=== PATIENT | male | born 1970 | race Two or more races ===

== ENCOUNTER 2017-12-23 18:13 | Inpatient (IN) | payer OTHER ==
[~2017-12-23] VITALS: Ht 175.3 cm; Wt 77.5 kg
[2017-12-23 19:17] LABS: Hematocrit 29.4 % (41.0-53.0); Mean Corpuscular Hemoglobin 29.2 pg (28.0-32.0); Mean Corpuscular Hgb Conc. 33.8 g/dL (32.0-36.0); Mean Corpuscular Volume 86.2 fL (80.0-100.0); Platelet Count (auto) 120 10^3/uL (140-450); Red Blood Cells 3.42 10^6/uL (4.5-5.90); Red Cell Distribution Width 14.1 % (11.8-14.3)
[2017-12-23 19:28] LABS: Band Neutrophils % (manual) 0; Basophils % (manual) 0 (0.0-2.0); Eosinophils % (manual) 0 (0-7); Promyelocytes % 0; Reactive Lymphocytes 0
[2017-12-23 19:36] LABS: Albumin 3.8 g/dL (3.4-5.0); Bilirubin, Total 0.5 mg/dL (0.2-1.0); Calcium 8.5 mg/dL (8.5-10.1); Magnesium 2.8 mg/dL (1.6-2.6); Potassium 3.8 mmol/L (3.5-5.1); Total Protein 7.8 g/dL (6.4-8.2)
[2017-12-23 20:22] LABS: Lymphocytes % (manual) 75 (10.0-50.0); Metamyelocytes % 1; Monocytes % (manual) 11 (0-12); Myelocytes % 2
[2017-12-23 20:27] LABS: Blast Cells 10
[2017-12-23] MEDS ORDERED: PIPERACILLIN-TAZOB 3.375GM 50 ML IV ONE (22:00)
[2017-12-23] MEDS ORDERED: SODIUM CHLORIDE 0.9% 1,000 ML IV ONE (22:00)
[2017-12-24] MEDS ORDERED: ACETAMINOPHEN 325 MG TAB PO ONE (01:00)
[2017-12-24 01:14] LABS: Urine Bacteria FEW /hpf (None Seen); Urine Blood Negative /uL (Negative); Urine Mucus FEW (None Seen); Urine Specific Gravity 1.008 (1.001-1.035); Urine WBC <1 /hpf (0 - 3)
[2017-12-24] MEDS ORDERED: ONDANSETRON HCL 4 MG/2 ML VIAL IV PRN (01:15)
[2017-12-24] MEDS: SODIUM CHLORIDE 0.9% 1,000 ML IV SCH ×3 (01:42→21:13)
[2017-12-24 05:00] VITALS: BP 110/72
[2017-12-24] MEDS: PIPERACILLIN-TAZOB 3.375GM 50 ML IV SCH ×3 (06:39→17:33)
[2017-12-24] MEDS ORDERED: ATOR40TA52 PO (06:43)
[2017-12-24 07:32] LABS: Hematocrit 24.8 % (41.0-53.0); Hemoglobin 8.3 g/dL (13.5-17.5); Mean Corpuscular Hemoglobin 28.8 pg (28.0-32.0); Mean Corpuscular Hgb Conc. 33.6 g/dL (32.0-36.0); Mean Corpuscular Volume 85.8 fL (80.0-100.0); Platelet Count (auto) 93 10^3/uL (140-450); Red Blood Cells 2.89 10^6/uL (4.5-5.90); White Blood Cell 22.4 10^3/uL (4.4-10.8)
[2017-12-24 07:37] LABS: Eosinophils % (manual) 0 (0-7)
[2017-12-24 07:38] LABS: Basophils % (manual) 0 (0.0-2.0); Blast Cells 0; Metamyelocytes % 0; Myelocytes % 0; Promyelocytes % 0; Reactive Lymphocytes 0
[2017-12-24 07:46] LABS: BUN/Creatinine Ratio 12.9; Calcium 8.3 mg/dL (8.5-10.1)
[2017-12-24 08:00] VITALS: BP 108/73
[2017-12-24 09:07] VITALS: BP 108/73
[2017-12-24 10:51] LABS: Band Neutrophils % (manual) 20; Lymphocytes % (manual) 70 (10.0-50.0); Monocytes % (manual) 8 (0-12)
[2017-12-24 13:00] VITALS: BP 109/71
[2017-12-24] MEDS: HYDROcodone-ACET 5/325MG TAB PO PRN (16:34)
[2017-12-24 17:00] VITALS: BP 122/77
[2017-12-24] MEDS: ATORVASTATIN 20 MG TAB PO SCH (21:14)
[2017-12-24 21:58] VITALS: BP 109/70
[2017-12-24] MEDS ORDERED: ACETAMINOPHEN 325 MG TAB PO PRN (22:15)
[2017-12-25] MEDS: PIPERACILLIN-TAZOB 3.375GM 50 ML IV SCH ×4 (00:55→17:51)
[2017-12-25 05:30] VITALS: BP 97/65
[2017-12-25] MEDS: SODIUM CHLORIDE 0.9% 1,000 ML IV SCH (05:48)
[2017-12-25 08:00] VITALS: BP 133/83
[2017-12-25 09:00] VITALS: BP 104/66
[2017-12-25 13:00] VITALS: BP 108/66
[2017-12-25 17:07] VITALS: BP 121/78
[2017-12-25] MEDS: HYDROcodone-ACET 5/325MG TAB PO PRN (17:51)
[2017-12-25] MEDS ORDERED: guaiFENesin-COD 10 ML UD PO PRN (18:15)
[2017-12-25] MEDS: ATORVASTATIN 20 MG TAB PO SCH (21:30)
[2017-12-25 22:47] VITALS: BP 100/63
[2017-12-26 05:20] VITALS: BP 98/64
[2017-12-26 08:00] VITALS: BP 100/68
[2017-12-26 08:11] VITALS: BP 100/68
[2017-12-26 12:10] VITALS: BP 107/65
[2017-12-26 14:38] VITALS: BP 107/65
[2017-12-27] MEDS ORDERED: OMEP20CA74 PO (22:18)
[2017-12-27] MEDS ORDERED: OMEG100078 PO (22:18)
== END 2017-12-26 15:21 | disposition home or self-care (01) | DRG 144 ==
LOC: ER 18:13 → TELE 18:14 → TELE-WESTW 12-24 04:05
PROVIDERS: ADMIT Nurse Practitioner Family; ATTEND Internal Medicine Pulmonary Disease
DX: J20.8 Acute bronchitis due to other specified organisms (principal); D69.6 Thrombocytopenia, unspecified; J06.9 Acute upper respiratory infection, unspecified; E78.5 Hyperlipidemia, unspecified; K21.9 Gastro-esophageal reflux disease without esophagitis; D72.820 Lymphocytosis (symptomatic); E78.00 Pure hypercholesterolemia, unspecified; Z82.49 Family history of ischemic heart disease and other diseases of the circulatory system; D72.829 Elevated white blood cell count, unspecified
CPT/HCPCS: 36415; 71046; 80048; 80053; 81001; 83735; 85007; 85027; 85060; 87070; 87086; 87804; 96365; J2543

== ENCOUNTER 2017-12-27 11:09 | Inpatient (IN) | payer OTHER ==
[~2017-12-27] VITALS: Ht 177.8 cm; Wt 75.9 kg
[~2017-12-27 11:09] MED LIST: ATOR40TA52 PO
[2017-12-27] MEDS ORDERED: MORPHINE SULFATE 4 MG/ML SYR/VIAL IV PRN ×2 (11:45)
[2017-12-27] MEDS ORDERED: NITROGLYCERIN 0.4 MG SL TAB SL PRN (11:45)
[2017-12-27] MEDS ORDERED: guaiFENesin-COD 10 ML UD PO PRN (11:45)
[2017-12-27] MEDS ORDERED: ONDANSETRON HCL 4 MG/2 ML VIAL IV PRN (11:45)
[2017-12-27 11:53] LABS: Mean Corpuscular Volume 85.8 fL (80.0-100.0)
[2017-12-27 11:57] LABS: Hematocrit 29.1 % (41.0-53.0); Hemoglobin 9.6 g/dL (13.5-17.5); Mean Corpuscular Hemoglobin 28.3 pg (28.0-32.0); Platelet Count (auto) 110 10^3/uL (140-450); Red Blood Cells 3.39 10^6/uL (4.5-5.90); Red Cell Distribution Width 14.4 % (11.8-14.3)
[2017-12-27 12:01] LABS: White Blood Cell 77.6 10^3/uL (4.4-10.8)
[2017-12-27 12:02] LABS: Band Neutrophils % (manual) 0
[2017-12-27 12:03] LABS: Basophils % (manual) 0 (0.0-2.0); Eosinophils % (manual) 0 (0-7); Metamyelocytes % 0; Myelocytes % 0; Promyelocytes % 0; Reactive Lymphocytes 0
[2017-12-27 12:10] LABS: Albumin 3.8 g/dL (3.4-5.0); BUN/Creatinine Ratio 12.4; Bilirubin, Total 0.9 mg/dL (0.2-1.0); Potassium 4.4 mmol/L (3.5-5.1); Total Protein 8.1 g/dL (6.4-8.2)
[2017-12-27 12:25] LABS: % Iron Saturation 90.1 % (20-55)
[2017-12-27 12:28] LABS: INR 1.02 (0.9-1.15); Prothrombin Time 11.1 sec (9.37-12.3)
[2017-12-27 12:36] LABS: Folate (Folic Acid) 17.62 ng/mL (5.38-24)
[2017-12-27 12:38] LABS: Cholesterol 113 mg/dL (< 200); HDL Cholesterol 17 mg/dL (40-59); LDL Cholesterol 62 mg/dL (< 100); Triglycerides 381 mg/dL (< 150)
[2017-12-27 12:43] LABS: Blast Cells 13; Lymphocytes % (manual) 86 (10.0-50.0); Monocytes % (manual) 1 (0-12)
[2017-12-27] MEDS ORDERED: ACETAMINOPHEN 500 MG TAB PO ONE (14:00)
[2017-12-27] MEDS ORDERED: guaiFENesin-CODEINE LIQUID 5 ML UD PO PRN (15:15)
[2017-12-27] MEDS: SODIUM CHLORIDE 0.9% 1,000 ML IV SCH (16:59)
[2017-12-27] MEDS: HYDROcodone-ACET 5/325MG TAB PO PRN (21:33)
[2017-12-27 22:00] VITALS: BP 111/67
[2017-12-27] MEDS ORDERED: OMEP20CA74 PO (22:18)
[2017-12-27] MEDS ORDERED: OMEG100078 PO (22:18)
[2017-12-28] MEDS: DOCUSATE SOD 100 MG CAP PO PRN ×2 (00:12→20:42)
[2017-12-28] MEDS: SODIUM CHLORIDE 0.9% 1,000 ML IV SCH ×2 (04:31→20:44)
[2017-12-28 04:48] VITALS: BP 99/60
[2017-12-28 08:24] LABS: Hemoglobin 7.8 g/dL (13.5-17.5); Platelet Count (auto) 81 10^3/uL (140-450)
[2017-12-28 08:27] LABS: Hematocrit 23.3 % (41.0-53.0); Mean Corpuscular Hemoglobin 28.7 pg (28.0-32.0); Mean Corpuscular Hgb Conc. 33.4 g/dL (32.0-36.0); Mean Corpuscular Volume 85.9 fL (80.0-100.0); Red Blood Cells 2.71 10^6/uL (4.5-5.90); Red Cell Distribution Width 14.4 % (11.8-14.3)
[2017-12-28 08:30] LABS: White Blood Cell 56.8 10^3/uL (4.4-10.8)
[2017-12-28 08:31] LABS: Band Neutrophils % (manual) 0; Basophils % (manual) 0 (0.0-2.0); Eosinophils % (manual) 0 (0-7); Metamyelocytes % 0; Myelocytes % 0; Promyelocytes % 0; Reactive Lymphocytes 0
[2017-12-28 08:33] LABS: Partial Thromboplastin Time 26.1 sec (22.64-33.71); Prothrombin Time 10.9 sec (9.37-12.3)
[2017-12-28 08:40] LABS: Albumin 3.3 g/dL (3.4-5.0); BUN/Creatinine Ratio 13.9; Bilirubin, Total 0.6 mg/dL (0.2-1.0); Calcium 8.3 mg/dL (8.5-10.1); Potassium 4.1 mmol/L (3.5-5.1); Total Protein 6.9 g/dL (6.4-8.2)
[2017-12-28] MEDS ORDERED: HYDROmorphone HCL 2 MG/ML VL IV PRN (08:45)
[2017-12-28 08:57] LABS: Blast Cells 15; Lymphocytes % (manual) 81 (10.0-50.0); Monocytes % (manual) 2 (0-12)
[2017-12-28 09:17] VITALS: BP 123/56
[2017-12-28] MEDS: PANTOPRAZOLE 40 MG TAB PO SCH (09:43)
[2017-12-28] MEDS ORDERED: IOHEXOL 300 MG/ML 100ML BOTTLE IJ ONE (12:01)
[2017-12-28 13:07] VITALS: BP 120/76
[2017-12-28 17:00] VITALS: BP 104/70
[2017-12-28 17:23] LABS: Albumin 3.3 g/dL (3.4-5.0); BUN/Creatinine Ratio 11.4; Bilirubin, Total 0.5 mg/dL (0.2-1.0); Calcium 8.5 mg/dL (8.5-10.1); Potassium 4.8 mmol/L (3.5-5.1); Total Protein 7.1 g/dL (6.4-8.2)
[2017-12-28 18:02] LABS: Red Blood Cells 2.78 10^6/uL (4.5-5.90); Red Cell Distribution Width 14.4 % (11.8-14.3)
[2017-12-28 18:05] LABS: Hematocrit 23.9 % (41.0-53.0); Mean Corpuscular Hemoglobin 28.6 pg (28.0-32.0); Mean Corpuscular Hgb Conc. 33.3 g/dL (32.0-36.0); Mean Corpuscular Volume 85.7 fL (80.0-100.0); Platelet Count (auto) 86 10^3/uL (140-450)
[2017-12-28 18:11] LABS: White Blood Cell 65.6 10^3/uL (4.4-10.8)
[2017-12-28 18:12] LABS: Band Neutrophils % (manual) 0; Basophils % (manual) 0 (0.0-2.0); Eosinophils % (manual) 0 (0-7); Metamyelocytes % 0; Myelocytes % 0; Promyelocytes % 0; Reactive Lymphocytes 0
[2017-12-28 18:52] LABS: Blast Cells 10; Lymphocytes % (manual) 86 (10.0-50.0); Monocytes % (manual) 2 (0-12)
[2017-12-28 20:00] VITALS: BP 111/69
[2017-12-28] MEDS: HYDROcodone-ACET 5/325MG TAB PO PRN (20:43)
[2017-12-28 22:00] VITALS: BP 111/69
[2017-12-29] VITALS (11 sets, daily range): BP systolic 101–121; BP diastolic 61–73
[2017-12-29 05:47] LABS: Hemoglobin 7.2 g/dL (13.5-17.5); Red Cell Distribution Width 14.5 % (11.8-14.3)
[2017-12-29 05:52] LABS: Hematocrit 21.4 % (41.0-53.0); Mean Corpuscular Hemoglobin 28.9 pg (28.0-32.0); Mean Corpuscular Hgb Conc. 33.6 g/dL (32.0-36.0); Platelet Count (auto) 70 10^3/uL (140-450); Red Blood Cells 2.49 10^6/uL (4.5-5.90)
[2017-12-29 06:06] LABS: BUN/Creatinine Ratio 12.1; Calcium 8.3 mg/dL (8.5-10.1); Potassium 4.6 mmol/L (3.5-5.1)
[2017-12-29 06:08] LABS: Bilirubin, Total 0.8 mg/dL (0.2-1.0); Total Protein 6.5 g/dL (6.4-8.2)
[2017-12-29 06:10] LABS: White Blood Cell 64.5 10^3/uL (4.4-10.8)
[2017-12-29 06:13] LABS: Band Neutrophils % (manual) 0; Basophils % (manual) 0 (0.0-2.0); Eosinophils % (manual) 0 (0-7); Metamyelocytes % 0; Myelocytes % 0; Promyelocytes % 0; Reactive Lymphocytes 0
[2017-12-29 07:46] LABS: Blast Cells 13; Lymphocytes % (manual) 85 (10.0-50.0); Monocytes % (manual) 1 (0-12)
[2017-12-29] MEDS: SODIUM CHLORIDE 0.9% 1,000 ML IV SCH ×2 (10:07→22:33)
[2017-12-29] MEDS: PANTOPRAZOLE 40 MG TAB PO SCH (10:07)
[2017-12-29] MEDS: HYDROcodone-ACET 5/325MG TAB PO PRN ×2 (16:24→22:40)
[2017-12-29] MEDS: DOCUSATE SOD 100 MG CAP PO PRN (22:40)
[2017-12-30 05:00] VITALS: BP 97/68
[2017-12-30 06:23] LABS: Hemoglobin 7.7 g/dL (13.5-17.5); Mean Corpuscular Hemoglobin 28.7 pg (28.0-32.0); Mean Corpuscular Hgb Conc. 33.5 g/dL (32.0-36.0); Mean Corpuscular Volume 85.7 fL (80.0-100.0); Platelet Count (auto) 66 10^3/uL (140-450); Red Blood Cells 2.68 10^6/uL (4.5-5.90); Red Cell Distribution Width 14.7 % (11.8-14.3)
[2017-12-30 07:44] LABS: White Blood Cell 71.7 10^3/uL (4.4-10.8)
[2017-12-30 07:45] LABS: Band Neutrophils % (manual) 0; Basophils % (manual) 0 (0.0-2.0); Eosinophils % (manual) 0 (0-7); Metamyelocytes % 0; Myelocytes % 0; Promyelocytes % 0; Reactive Lymphocytes 0
[2017-12-30 08:00] VITALS: BP 112/71
[2017-12-30 09:00] VITALS: BP 112/71
[2017-12-30] MEDS: PANTOPRAZOLE 40 MG TAB PO SCH (09:09)
[2017-12-30 12:03] LABS: Blast Cells 17; Lymphocytes % (manual) 81 (10.0-50.0); Monocytes % (manual) 1 (0-12)
[2017-12-30 13:00] VITALS: BP 117/74
[2017-12-30] MEDS ORDERED: cefTRIAXone 1GM/10ml IVPUSH 10 ML IV ONE (17:45)
[2017-12-30] MEDS ORDERED: ACETAMINOPHEN 500 MG TAB PO PRN (17:45)
[2017-12-30 17:54] VITALS: BP 119/74
[2017-12-30 21:45] VITALS: BP 104/64
[2017-12-31 05:00] VITALS: BP 120/78
[2017-12-31 06:19] LABS: Red Cell Distribution Width 14.9 % (11.8-14.3)
[2017-12-31 06:26] LABS: Mean Corpuscular Hemoglobin 28.4 pg (28.0-32.0); Mean Corpuscular Hgb Conc. 33.3 g/dL (32.0-36.0); Mean Corpuscular Volume 85.5 fL (80.0-100.0); Platelet Count (auto) 70 10^3/uL (140-450); Red Blood Cells 2.81 10^6/uL (4.5-5.90)
[2017-12-31 06:40] LABS: Albumin 3.1 g/dL (3.4-5.0); BUN/Creatinine Ratio 13.1; Bilirubin, Total 0.7 mg/dL (0.2-1.0); Calcium 8.3 mg/dL (8.5-10.1); Potassium 4.2 mmol/L (3.5-5.1); Total Protein 7.1 g/dL (6.4-8.2)
[2017-12-31 06:42] LABS: Band Neutrophils % (manual) 0; Basophils % (manual) 0 (0.0-2.0); Eosinophils % (manual) 0 (0-7); Metamyelocytes % 0; Monocytes % (manual) 0 (0-12); Myelocytes % 0; Promyelocytes % 0; Reactive Lymphocytes 0; White Blood Cell 97.1 10^3/uL (4.4-10.8)
[2017-12-31 08:00] VITALS: BP 108/66
[2017-12-31 08:41] VITALS: BP 105/66
[2017-12-31] MEDS: HYDROcodone-ACET 5/325MG TAB PO PRN (08:45)
[2017-12-31] MEDS ORDERED: cefTRIAXone 1GM/10ml IVPUSH 10 ML IV SCH (09:00)
[2017-12-31] MEDS ORDERED: SODIUM CHLORIDE 0.9% 1,000 ML IV SCH ×2 (09:30→10:00)
[2017-12-31] MEDS ORDERED: DEXAMETHASONE SOD PHOS 10MG/1ML VIAL INJ IV SCH (10:00)
[2017-12-31] MEDS: PANTOPRAZOLE 40 MG TAB PO SCH (10:15)
[2017-12-31 11:52] VITALS: BP 103/62
[2017-12-31 12:56] LABS: Blast Cells 11; Lymphocytes % (manual) 87 (10.0-50.0)
[2017-12-31 16:01] VITALS: BP 103/62
[2017-12-31 16:39] VITALS: BP 106/68
== END 2017-12-31 17:00 | disposition short-term general hospital (02) | DRG 690 ==
LOC: ER 11:09 → OVERFLOW 11:10 → UNDODEPER 14:38 → OVERFLOW 17:42 → CENTRAL 17:56
PROVIDERS: ADMIT Internal Medicine; ATTEND Internal Medicine
PROC: 07DR3ZX Extraction of Iliac Bone Marrow, Percutaneous Approach, Diagnostic (ICD-10-PCS; 2017-12-28)
PROC: 30233N1 Transfusion of Nonautologous Red Blood Cells into Peripheral Vein, Percutaneous Approach (ICD-10-PCS; principal; 2017-12-29)
DX: C91.00 Acute lymphoblastic leukemia not having achieved remission (principal); N17.0 Acute kidney failure with tubular necrosis; D69.6 Thrombocytopenia, unspecified; D64.9 Anemia, unspecified; K21.9 Gastro-esophageal reflux disease without esophagitis; R79.89 Other specified abnormal findings of blood chemistry; E78.5 Hyperlipidemia, unspecified; R63.4 Abnormal weight loss; Z80.8 Family history of malignant neoplasm of other organs or systems; Z82.49 Family history of ischemic heart disease and other diseases of the circulatory system; Z79.899 Other long term (current) drug therapy; Z68.24 Body mass index [BMI] 24.0-24.9, adult; Z71.3 Dietary counseling and surveillance
CPT/HCPCS: 36415; 71045; 71260; 74177; 80053; 80061; 82306; 82607; 82746; 83540; 83550; 83615; 84443; 85007; 85027; 85045; 85097; 85610; 85730; 86850; 86880; 86885; 86900; 86901; 86920; 88185; 96360; J1100

== ENCOUNTER 2019-02-23 09:28 | Emergency (ER) | payer MEDICAID, OTHER ==
[~2019-02-23] VITALS: Ht 175.3 cm; Wt 68.5 kg
[2019-02-23 10:43] LABS: Basophils # (auto) 0 uL; Basophils % (auto) 0.7 % (0.0-2.0); Eosinophils # (auto) 0.1 uL; Eosinophils % (auto) 1.7 % (0.0-7.0); Hematocrit 33.4 % (41.0-53.0); Hemoglobin 11.3 g/dL (13.5-17.5); Lymphocytes # (auto) 1.2 uL; Lymphocytes % (auto) 28.4 % (10.0-50.0); Mean Corpuscular Hemoglobin 36.2 pg (28.0-32.0); Mean Corpuscular Hgb Conc. 33.7 g/dL (32.0-36.0); Mean Corpuscular Volume 107.4 fL (80.0-100.0); Monocytes # (auto) 0.6 uL; Neutrophils # (auto) 2.3 uL; Neutrophils % (auto) 55.2 % (37.0-80.0); Nucleated Red Blood Cells % 0.1 %; Platelet Count (auto) 199 10^3/uL (140-450); Red Blood Cells 3.11 10^6/uL (4.5-5.90); Red Cell Distribution Width 17.5 % (11.8-14.3); White Blood Cell 4.2 10^3/uL (4.4-10.8)
[2019-02-23 11:03] LABS: Albumin 2.6 g/dL (3.4-5.0); BUN/Creatinine Ratio 12.2; Calcium 8.2 mg/dL (8.5-10.1); Potassium 3.8 mmol/L (3.5-5.1)
[2019-02-23 11:06] LABS: Bilirubin, Total 0.4 mg/dL (0.2-1.0); Total Protein 6.4 g/dL (6.4-8.2)
[2019-02-23 12:07] VITALS: BP 112/67
== END 2019-02-23 12:07 | disposition home or self-care (01) ==
LOC: ER 09:30
DX: J18.9 Pneumonia, unspecified organism (principal); C91.00 Acute lymphoblastic leukemia not having achieved remission; Z79.899 Other long term (current) drug therapy
CPT/HCPCS: 36415; 71046; 80053; 85025; 94761